=== PATIENT | male | born 2000 | race Two or more races ===

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

== ENCOUNTER 2024-02-23 10:37 | Emergency (ER) | payer MEDICAID, OTHER ==
[~2024-02-23] VITALS: Ht 182.9 cm; Wt 79.6 kg
[2024-02-23 11:05] VITALS: BP 133/76; PULSE 90; RESP 16; TEMP 98.9; O2SAT 99
[2024-02-23] MEDS ORDERED: IBUP-1456 PO (11:55)
== END 2024-02-23 11:56 | disposition home or self-care (01) ==
LOC: ER 10:37
DX: S29.011A Strain of muscle and tendon of front wall of thorax, initial encounter (principal); V49.88XA Car occupant (driver) (passenger) injured in other specified transport accidents, initial encounter; Y93.89 Activity, other specified; Y92.89 Other specified places as the place of occurrence of the external cause; Y99.8 Other external cause status
CPT/HCPCS: 71101